=== PATIENT | male | born 1975 | race African-American/Black ===

== ENCOUNTER 2016-06-27 10:27 | Emergency (ER) | payer OTHER ==
[2016-06-27 10:46] VITALS: BP 141/93; PULSE 75; TEMP 97.6; BMI 32.8
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
== END 2016-06-27 11:51 | disposition home or self-care (01) ==
LOC: FER 10:27
DX: S02.2XXA Fracture of nasal bones, initial encounter for closed fracture (principal); Y04.2XXA Assault by strike against or bumped into by another person, initial encounter; Y93.9 Activity, unspecified; Y92.9 Unspecified place or not applicable
CPT/HCPCS: 70450-TC; 70486-TC; 99282-25

== ENCOUNTER 2019-03-18 09:02 | Emergency (ER) | payer OTHER ==
[2019-03-18 09:25] VITALS: BP 128/78; PULSE 65; TEMP 98.4; BMI 34.8
[2019-03-18] MEDS ORDERED: IBUPROFEN 400 MG TABLET (FP) PO PRN (09:26)
[2019-03-18] MEDS ORDERED: LIDOCAINE 5% TOPICAL PATCH TP ONE (09:27)
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
[2019-03-18] MEDS ORDERED: LIDOCAINE 5% TOPICAL PATCH ONE (09:30)
[2019-03-18] MEDS ORDERED: IBUPROFEN 400 MG TABLET (FP) PO ONE (09:30)
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
[2019-03-18] MEDS ORDERED: LIDOCAINE PATCH REMOVAL MC SCH (22:00)
== END 2019-03-18 10:09 | disposition home or self-care (01) ==
LOC: FER 09:02
PROC: 2W3DX1Z Immobilization of Left Lower Arm using Splint (ICD-10-PCS; principal; 2019-03-18)
DX: M25.532 Pain in left wrist (principal); V43.52XA Car driver injured in collision with other type car in traffic accident, initial encounter; Y93.89 Activity, other specified; Y92.410 Unspecified street and highway as the place of occurrence of the external cause
CPT/HCPCS: 99282-25

== ENCOUNTER 2023-03-10 18:59 | Emergency (ER) | payer OTHER ==
[2023-03-10 19:15] VITALS: BP 120/76; PULSE 63; RESP 16; TEMP 99.1; BMI 35.9
[2023-03-10] MEDS ORDERED: IBUPROFEN 400 MG TABLET (FP) PO ONE ×2 (19:45→19:47)
== END 2023-03-10 20:47 | disposition home or self-care (01) ==
LOC: FER 18:59
DX: S83.422A Sprain of lateral collateral ligament of left knee, initial encounter (principal); M25.562 Pain in left knee; W01.0XXA Fall on same level from slipping, tripping and stumbling without subsequent striking against object, initial encounter
CPT/HCPCS: 73562-TC-LT-FY; 99283-25